=== PATIENT | female | born 1970 | race Asian ===

== ENCOUNTER 2020-05-25 10:30 | Outpatient (REF) | payer OTHER, SELFPAY ==
[2020-05-25 13:57] LABS: MANUAL DIFF FLAG NO
[2020-05-25 14:04] LABS: Basophils Absolute Auto 0.1 X10*3/uL (0.0-0.2); Basophils Percent Auto 1.2 % (0-2); Eosinophils Absolute Auto 0.3 X10*3/uL (0.0-0.4); Eosinophils Percent Auto 6.1 % (0-4); Hematocrit 38.4 % (37-47); Hemoglobin 12.3 g/dl (12.0-16.0); Imm Gran Abs Auto 0.01 X10*3/uL (0.00-0.03); Imm Gran Pct Auto 0.2 % (0.0-0.4); Lymphocytes Absolute Auto 1.7 X10*3/uL (1.2-4.9); Lymphocytes Percent Auto 32.9 % (20-40); Mean Corpuscular Hemoglobin 27.6 pg (27.0-33.0); Mean Corpuscular Volume 86.1 fL (80-98); Mean Platelet Volume 9.9 fL (9.4-12.3); Monocytes Absolute Auto 0.4 X10*3/uL (0.1-1.2); Monocytes Percent Auto 7.3 % (2-11); Neutrophils Absolute Auto 2.7 X10*3/uL (2.0-8.3); Neutrophils Percent Auto 52.3 % (45-73); Platelet Count 329 X10*3/uL (160-400); Red Blood Count 4.46 X10*6/uL (4.20-5.50); Red Cell Distribution Width 12.3 % (11.0-16.0); White Blood Count 5.1 X10*3/uL (4.8-10.8)
[2020-05-25 14:44] LABS: Anion Gap 12 (12-20); Blood Urea Nitrogen 16 mg/dL (9-16); Calcium 9.3 mg/dL (8.4-10.2); Carbon Dioxide 29 mmol/L (22-29); Chloride 104 mmol/L (96-108); Cholesterol 179 mg/dL; Estimated Glomerular Filt Rate > 60; Glucose Fasting 83 mg/dL (60-99); HDL Cholesterol 84 mg/dL; LDL Cholesterol Calculated 86 mg/dl; Potassium 4.8 mmol/l (3.3-5.1); Sodium 140 mmol/L (135-145); Triglycerides 46 mg/dL
== END 2020-05-25 10:31 | disposition home or self-care (01) ==
LOC: HO.HMGCLDS 10:30
PROVIDERS: PCP Internal Medicine; Visit Provider Internal Medicine
DX: Z01.419 Encounter for gynecological examination (general) (routine) without abnormal findings (principal); Z12.31 Encounter for screening mammogram for malignant neoplasm of breast
CPT/HCPCS: 36415; 80048; 80061; 85025

== ENCOUNTER 2020-12-16 11:35 | Outpatient (REF) | payer OTHER, SELFPAY ==
[2020-12-16 14:00] LABS: MANUAL DIFF FLAG NO
[2020-12-16 14:06] LABS: Basophils Percent Auto 0.5 % (0-2); Eosinophils Percent Auto 0.3 % (0-4); Hematocrit 41.9 % (37-47); Hemoglobin 13.5 g/dl (12.0-16.0); Imm Gran Abs Auto 0.01 X10*3/uL (0.00-0.03); Imm Gran Pct Auto 0.3 % (0.0-0.4); Lymphocytes Absolute Auto 0.6 X10*3/uL (1.2-4.9); Lymphocytes Percent Auto 15.5 % (20-40); Mean Corpuscular HGB Conc 32.2 g/dl (31.0-35.0); Mean Corpuscular Hemoglobin 27.3 pg (27.0-33.0); Mean Corpuscular Volume 84.6 fL (80-98); Mean Platelet Volume 9.8 fL (9.4-12.3); Monocytes Absolute Auto 0.5 X10*3/uL (0.1-1.2); Monocytes Percent Auto 11.5 % (2-11); Neutrophils Absolute Auto 2.8 X10*3/uL (2.0-8.3); Neutrophils Percent Auto 71.9 % (45-73); Platelet Count 214 X10*3/uL (160-400); Red Blood Count 4.95 X10*6/uL (4.20-5.50); Red Cell Distribution Width 12.1 % (11.0-16.0); White Blood Count 3.9 X10*3/uL (4.8-10.8)
[2020-12-16 14:30] LABS: Alanine Aminotransferase 95 U/L (0-31); Albumin Level 4.4 g/dL (3.5-5.0); Alkaline Phosphatase 84 U/L (39-117); Anion Gap 14 (12-20); Aspartate Amino Transferase 78 U/L (5-31); Bilirubin Total 0.5 mg/dL (0.0-1.0); Blood Urea Nitrogen 14 mg/dL (9-16); Calcium 9.4 mg/dL (8.4-10.2); Carbon Dioxide 25 mmol/L (22-29); Chloride 105 mmol/L (96-108); Estimated Glomerular Filt Rate > 60; Glucose Random 99 mg/dL (60-115); Potassium 4.2 mmol/L (3.3-5.1); Sodium 140 mmol/L (135-145); Total Protein 7.9 g/dL (6.5-8.0)
[2020-12-16 14:33] LABS: Monotest Negative (Negative)
== END 2020-12-16 11:36 | disposition home or self-care (01) ==
LOC: HO.HMGCLDS 11:35
PROVIDERS: PCP Internal Medicine; Visit Provider Hospitalist
DX: R53.83 Other fatigue (principal); Z20.822 Contact with and (suspected) exposure to COVID-19
CPT/HCPCS: 36415; 80053; 84443; 85025; 86308; U0003; U0005

== ENCOUNTER 2021-02-13 14:29 | Outpatient (REF) | payer OTHER, SELFPAY ==
[2021-02-13 16:02] LABS: Alanine Aminotransferase 18 U/L (0-31); Albumin Level 4.6 g/dL (3.5-5.0); Alkaline Phosphatase 63 U/L (39-117); Aspartate Amino Transferase 20 U/L (5-31); Bilirubin Direct 0.2 mg/dL (0.0-0.5); Bilirubin Total 0.6 mg/dL (0.0-1.0); Total Protein 7.8 g/dL (6.5-8.0)
[2021-02-13 16:23] LABS: Ferritin 53 ng/mL (10-250)
[2021-02-15 08:07] LABS: HBc Num1 0.09 S/CO (0.00-0.79); HBsAGNum1 0.17 S/CO (0.00-0.99); Hepatitis A Antibody IgM 0.19 Index (0-0.79); Hepatitis B Core Antibody Nonreactive (Nonreactive); Hepatitis B Surface Antigen Negative (Negative); ~HepC Num1 0.14 S/CO (0.00-0.79); ~Hepatitis A Antibody IgM Nonreactive (Nonreactive); ~Hepatitis C Antibody Nonreactive (Nonreactive)
[2021-02-15 08:41] LABS: HBS Num1 0.82 mIU/mL (0-7.99); HIV AB/AG Nonreactive (Nonreactive); HIV Num 1 0.09 S/CO (0.00-0.99); ~Hepatitis B Surface Antibody NONREACTIVE (Nonreactive)
[2021-02-15 10:42] LABS: Alpha Fetoprotein 6.6 ng/mL
[2021-02-16 14:46] LABS: Mitochondrial Antibodies NEGATIVE (NEGATIVE)
[2021-02-16 22:37] LABS: Anti Nuclear Antibody Pattern Nuclear, Speckled; Anti Nuclear Antibody Screen POSITIVE (NEGATIVE)
[2021-02-17 11:41] LABS: Smooth Muscle Antibody <20 U (<20)
== END 2021-02-13 14:30 | disposition home or self-care (01) ==
LOC: HO.LAB 14:29
PROVIDERS: PCP Internal Medicine; Visit Provider Nurse Practitioner
DX: R79.89 Other specified abnormal findings of blood chemistry (principal)
CPT/HCPCS: 36415; 80076; 82105; 82728; 86038; 86039; 86255; 86256; 86704; 86706; 86709; 86803; 87340; 87389

== ENCOUNTER 2021-03-31 14:32 | Outpatient (REF) | payer OTHER, SELFPAY ==
[2021-03-31 18:06] LABS: Alanine Aminotransferase 10 U/L (0-31); Albumin Level 4.4 g/dL (3.5-5.0); Alkaline Phosphatase 55 U/L (39-117); Aspartate Amino Transferase 14 U/L (5-31); Bilirubin Direct < 0.2 mg/dL (0.0-0.5); Bilirubin Total 0.3 mg/dL (0.0-1.0); Total Protein 7.3 g/dL (6.5-8.0)
[2021-03-31 18:27] LABS: TSH reflex Free T4 1.27 uIU/mL (0.32-4.0)
[2021-04-03 04:11] LABS: SARS COV2 IgG Negative (Negative)
== END 2021-03-31 14:33 | disposition home or self-care (01) ==
LOC: HO.HMGCLDS 14:32
PROVIDERS: PCP Internal Medicine; Visit Provider Internal Medicine
DX: R94.5 Abnormal results of liver function studies (principal); R00.2 Palpitations; Z01.84 Encounter for antibody response examination
CPT/HCPCS: 36415; 80076; 84443; 86769

== ENCOUNTER 2021-05-19 08:07 | Outpatient (REF) | payer OTHER, SELFPAY ==
--- NOTE | ~2021-05-19 | US_ITS ---
EXAMINATION: US COMPLETE ABDOMEN WITH LIVER ELASTOGRAPHY CLINICAL INFORMATION: Abnormal blood chemistry, elevated liver function tests. COMPARISON: None. TECHNIQUE: Real-time imaging of the abdominal viscera. FINDINGS: PANCREAS: Normal. The visualized pancreatic head and body are normal in appearance. The remainder of the pancreas is obscured from visualization by the overlying bowel gas. ABDOMINAL AORTA: The proximal, middle, and distal aortic segments are normal in caliber. INFERIOR VENA CAVA: Visualized portions are normal. LIVER: The liver demonstrates normal size, contour and average echogenicity. No focal lesion or intrahepatic biliary duct dilatation. The right lobe measures 13.8 cm in length. The left lobe measures 12.3 cm in length. Portal flow is hepatopedal. Shear wave liver elastography median stiffness is 1.44 m/s (reference: normal median stiffness is 1.3 m/s or less). IQR/median stiffness to assess sampling precision is 0.09 (reference: good quality data set is IQR/median stiffness of 0.15 or less). GALLBLADDER: There are multiple echogenic nonmobile polyps with the largest polyp measuring 0.7 x 0.9 cm. No echogenic stones or wall thickening seen. COMMON BILE DUCT: Normal in caliber measuring 0.7 cm in diameter. RIGHT KIDNEY: There is an anechoic cyst midpole medially measuring 1.7 x 1.0 x 1.6 cm. There is an echogenic stone versus calcification posterior to the cyst measuring 1.0 x 0.2 cm. There is an echogenic stone in the upper pole measuring 0.2 x 0.1 cm. No caliectasis or hydronephrosis seen. The kidney measures 10.3 cm in maximum dimension. LEFT KIDNEY: Normal. No hydronephrosis. No renal calculi or focal parenchymal lesions. The kidney measures 9.7 cm in maximum dimension. SPLEEN: Normal. The spleen measures 6.5 cm in maximum dimension. FREE FLUID: None. US/US abdomen comp w elastography IMPRESSION: 1. At least 5 echogenic gallbladder polyps with largest one measuring 9 mm. Anechoic cysts, and a nonobstructive echogenic 2 calculi right kidney. There is no hydronephrosis. Average liver echogenicity. No focal lesion. 2. Liver elastography: Median liver stiffness 1.44 m/s. Findings suggestive of cACLD ruled out. REFERENCE: Society of Radiologists in Ultrasound Liver Stiffness Thresholds (2020): LIVER STIFFNESS THRESHOLDS: *Liver Stiffness equal or less than 1.3 m/s: High probability of being normal. *Liver Stiffness less than 1.7 m/s: In the absence of other known clinical signs, rules out compensated advanced chronic liver disease. *Liver Stiffness 1.7-2.1 m/s: Suggestive of compensated advanced chronic liver disease but need further test for confirmation. *Liver Stiffness over 2.1 m/s: Rules in compensated advanced chronic liver disease. *Liver Stiffness over 2.4 m/s: Suggestive of clinically significant portal hypertension. QUALITY OF DATA SET: *IQR/Median value equal or less than 0.15 implies a quality data set. *IQR/Median value over 0.15 implies a poor quality data set. SIGNIFICANT CHANGE FROM PRIOR EXAM: Significant change if liver stiffness measurement is 10% or greater from prior exam. OTHER CONSIDERATIONS: The stage of liver fibrosis may be overestimated in the setting of acute hepatitis, liver inflammation, elevated liver function tests, hepatic vascular congestion, obstructive cholestasis, non-fasting state, and infiltrative diseases such as amyloidosis and lymphoma. In some patients with NAFLD, the liver stiffness thresholds for compensated advanced chronic liver disease may be lower. In causes other than viral hepatitis and NAFLD, liver stiffness thresholds are not well established.
== END 2021-05-19 08:08 | disposition home or self-care (01) ==
LOC: HO.US 08:07
PROVIDERS: PCP Internal Medicine; Visit Provider Nurse Practitioner
DX: R79.89 Other specified abnormal findings of blood chemistry (principal)
CPT/HCPCS: 76705; 76981

== ENCOUNTER → 2022-07-23 13:12 | Outpatient (BNVA) | payer OTHER, SELFPAY | PROVIDERS: PCP Internal Medicine; Visit Provider Internal Medicine | DX: Z20.7 Contact with and (suspected) exposure to pediculosis, acariasis and other infestations (principal) | CPT/HCPCS: 99202 ==

== ENCOUNTER 2024-07-29 14:10 | Outpatient (AMB) | payer OTHER, SELFPAY ==
[2024-07-29 14:19] VITALS: BP 108/72; PULSE 74; O2SAT 94; BMI 23.3
--- NOTE | 2024-07-29 14:19 | A.OFFPC_ITS ---
Vital Signs 07/29/24 14:19 Height 5 ft 6 in Weight 144 lb 6 oz BMI 23.3 BP 108/72 Blood Pressure Location Rt brachial Position Sitting Pulse 74 Pulse Source Pulse Oximeter Pulse Oximetry (%) 94 Oxygen Delivery Method Room Air Intake Visit Reasons: CPE Allergies Iodinated Contrast Media Allergy (Verified 07/23/22 13:15) mild Medication List - Last Reconciled 07/29/24 by Zoraida Ortiz MD No Known Home Meds Tobacco use date assessed: 06/01/22 HPI CPE HPI Details - The patient is a 54-year-old female pr esenting for a general medical examination. - Post-cholecystectomy, she reports into lerance to fatty foods, experiencing postprandial abdominal pain, primarily when consuming high-fat foods like Egyptian fries. This issue surfaced following unnecessary gallbladder removal. - Cologuard screening was negative over a year ago; recommended every three years. - She adheres to mammography screenings with the last occurring in May; self-directed follow-up is pending. - Her last OBGYN consult occurred two ye ars ago; next consult is expected in about three years. Health Maintenance - Mammography performed in May; fol low-up scheduled independently. - Last OBGYN visit two years prior with the next recommended in three years. - Cologuard test over a year ago returne d negative results. - Vitamin D supplementation recommended twice weekly. - Tetanus vaccination administered in ; due in 2026. - Encouragement of dietary intake of petra cium and vitamin D through supplements and dairy. Diagnostic results - Labs from 2020 indicated normal kidney function, glucose levels, liver enzymes, thyroid function, iron levels, hemoglobin, and platelet count. Patient Instructions - Schedule and undergo mammography as pa rt of routine health maintenance. - Continue regular OBGYN follow-ups as p reviously advised, approximately every five years. - Avoid high-fat foods to mitigate post- cholecystectomy abdominal discomfort. - Continue calcium and multivitamin supp lementation while maintaining a dietary focus on vitamin D, preferably twice weekly supplementing. Review of Systems - Gastrointestinal: Reports abdominal pa in in response to fatty foods post- cholecystectomy. - Musculoskeletal: Denies swelling or pa in in joints. - Neurological: Denies headaches, palpit ations, or other neurological symptoms. - Hematological: Denies signs of anemia or vitamin deficiency symptoms. - General: No fever no chills - Ear nose throat: No sore throat no hearing difficulty no ear pain - Cardiovascular: No syncope, no chest pain, no palpitations - Endocrine: No polyuria polydipsia no heat intolerance - Genitourinary: No dysuria - Skin: No new complaints Physical Exam General: Cooperative, healthy appearing, comfortable, no acute distress Orientation: Patient oriented x3 Limitations: None Head: Normal to inspection Ears: Within normal limit visually Nose: Normal external nose present Face and sinus: Normal facial exam Eyes: Appearance normal, extraocular movement intact pupils reactive Neck: Normal visual inspection and supple, thyroid normal Respiratory: Normal respiratory effort and able to speak in complete sentences. Clear to auscultation, no stridor Breast exam benign Cardiovascular: S1 and S2 GI: Normal to inspection. Soft to palpation and nontender, except for stomach ache after eating fatty foods Skin: Turgor normal, no acute findings Neuro: Patient oriented x3, motor sensory intact, balance intact, tandem pass Extremities: Normal to inspection, no swelling noted [facility] Medical History Exposure to parasitic disease Annual physical exam Surgical History History of hysteroscopy H/O laparoscopy Family History Father Cancer of prostate Mother HTN (hypertension) Breast cancer Son No problems noted. Son No problems noted. Daughter No problems noted. Social History Housing: Apartment Alcohol intake: never Patient Tobacco Use Status: Never used Tobacco e-Cigarette/Vaping Use: Never Used Second Hand Smoke Exposure: Yes (last month ) Current occupational status: employed Cognitive needs: No Hearing needs: No Vision needs: No Questionnaire PHQ-9 Over the last 2 weeks, how often have you been bothered by any of the following problems? 1. Little interest or pleasure in doing things: not at all 2. Feeling down, depressed, or hopeless: several days 3. Trouble falling or staying asleep, or sleeping too much: not at all 4. Feeling tired or having little energy: several days 5. Poor appetite or overeating: several days 6. Feeling bad about yourself - or that you are a failure or have let yourself or your family down: several days 7. Trouble concentrating on things, such as reading the newspaper or watching television: several days 8. Moving or speaking so slowly that other people could have noticed. Or the opposite - being so fidgety or restless that you have been moving around a lot more than usual: not at all 9. Thoughts that you would be better off or of hurting yourself in some way: not at all Total score: 5 Depression Screening Interpretation: Negative Depression Screening Done: Yes 92402 - PHQ-9 Billing: Yes Source: Developed by Drs. Charles Sarmiento, Kaley Parker, Eron Castaneda and colleagues, with an educational gricelda from [employer]. Thrive Questionnaire Date Thrive assessed: 05/30/21 I am a: Patient What is your living situation today?: I have a steady place to live Within the past 12 months, did the food you bought not last and you didn't have the money to get more?: Never true Within the past 12 months, did you worry whether your food would run out before you got money to buy more?: Never true Do you have trouble paying for medicines?: No Do you have trouble getting transportation to medical appointments?: No Do you have trouble paying your heating and electricity bill?: No Do you have trouble taking care of your child, family member or friend?: No Do you have trouble with day-to-day activities such as bathing, preparing meals, shopping, managing finances, etc.?: No Are you currently unemployed and looking for a job?: No Are you interested in more education?: No Please select the resources that you would like help with: None Currently or been in a relationship where the following occur: No concerns reported THRIVE Score: 0 AUDIT C Alcohol Use Questionnaire (AUDIT-C) 1. How often do you have a drink containing alcohol?: Never Total Score: 0 CLEMENTINA-7 AMB Questionnaire CLEMENTINA-7 Date CLEMENTINA - 7 assessed: 05/30/21 Feeling nervous, anxious, or on edge: 1 = Several days Not being able to stop or control worryin = Several days Worrying too much about different things: 1 = Several days Trouble relaxin = Several days Being so restless that it is hard to sit still: 1 = Several days Becoming easily annoyed or irritable: 1 = Several days Feeling afraid as if something awful might happen: 1 = Several days Total CLEMENTINA-7 score (0-4 normal; 5-9 mild; 10-14 moderate; 15-21 severe): 7 Source: Developed by Drs. Charles Sarmiento, Kaley Parker, Eron Castaneda and colleagues, with an educational gricelda from [employer]. CLEMENTINA-7 Assessment Billing CLEMENTINA-7 Assessment Tool: CLEMENTINA-7 Assessment 08095 Physical exam (Primary Care) Vital Signs: Last Vital Signs Pulse 74 07/29/24 14:19 BP 108/72 07/29/24 14:19 Pulse Ox 94 07/29/24 14:19 Oxygen Delivery Method Room Air 07/29/24 14:19 BMI result Body Mass Index 23.3 Tobacco/Smoking Status: Tobacco use Status Tobacco use date assessed 06/01/22 07/29/24 14:21 Patient Tobacco Use Status Never used Tobacco 07/29/24 14:21 e-Cigarette/Vaping Use Never Used 07/29/24 14:21 PHQ-9: PHQ-9 Score PHQ-9: Total score 5 07/29/24 14:36 Depression Screening Interpretation: Negative Thrive Assessment: Date of Thrive Assessment Date Thrive assessed 05/30/21 07/29/24 14:21 Currently or been in a relationship where the following occur: No concerns reported Coding Level of Care Code Est Pt Prev Care 40-64y(72397) Diagnoses Adult general medical examination Z00.00 Additional Codes PHQ-9 - 65411 - PHQ-9 Billing: Yes ([id number]) CLEMENTINA-7 Assessment Billing - CLEMENTINA-7 Assessment Tool: CLEMENTINA-7 Assessment 99542 ([id number]) Assessment & Plan Assessment & Plan (1) Adult general medical examination: Code(s): Z00.00 - Encounter for general adult medical examination without abnormal findings Category: Medical Plan - The patient is a 54-year-old female presenting for a general medical examination. - Post-cholecystectomy, she reports intolerance to fatty foods, experiencing postprandial abdominal pain, primarily when consuming high-fat foods like Egyptian fries. This issue surfaced following unnecessary gallbladder removal. - Cologuard screening was negative over a year ago; recommended every three years. - She adheres to mammography screenings with the last occurring in May; self-directed follow-up is pending. - Her last OBGYN consult occurred two years ago; next consult is expected in about three years. Health Maintenance - Mammography performed in May; follow-up scheduled independently. - Last OBGYN visit two years prior with the next recommended in three years. - Cologuard test over a year ago returned negative results. - Vitamin D supplementation recommended twice weekly. - Tetanus vaccination administered in 2016; due in 2026. - Encouragement of dietary intake of calcium and vitamin D through supplements and dairy. Diagnostic results - Labs from 2020 indicated normal kidney function, glucose levels, liver enzymes, thyroid function, iron levels, hemoglobin, and platelet count. Patient Instructions - Schedule and undergo mammography as part of routine health maintenance. - Continue regular OBGYN follow-ups as previously advised, approximately every five years. - Avoid high-fat foods to mitigate post-cholecystectomy abdominal discomfort. - Continue calcium and multivitamin supplementation while maintaining a dietary focus on vitamin D, preferably twice weekly supplementing. Orders: Orders Comprehensive [place]. Panel Fast Today Z00.00 - Encounter for general adult medical examination without abnormal findings Lipid Panel Today Z00.00 - Encounter for general adult medical examination without abnormal findings MM tomosynthesis screening BI Today Z12.31 - Encounter for screening mammogram for malignant neoplasm of breast Complete Blood Count Auto Diff Today Z00.00 - Encounter for general adult medical examination without abnormal findings UA CC w/rflx Micro + Cult Today Z00.00 - Encounter for general adult medical examination without abnormal findings
== END 2024-07-29 14:51 | disposition home or self-care (01) ==
PROVIDERS: PCP Internal Medicine; Visit Provider Internal Medicine
DX: Z00.00 Encounter for general adult medical examination without abnormal findings (principal)

== ENCOUNTER → 2024-07-29 14:10 | Outpatient (BNVA) | payer OTHER, SELFPAY | PROVIDERS: PCP Internal Medicine; Visit Provider Internal Medicine | DX: Z00.00 Encounter for general adult medical examination without abnormal findings (principal) | CPT/HCPCS: 96127 ==

== ENCOUNTER 2024-12-01 11:48 | Outpatient (AMB) | payer OTHER, SELFPAY ==
--- NOTE | 2024-12-01 11:52 | AM.OFFWIN_ITS ---
Intake Vital Signs 12/01/24 11:55 12/01/24 11:56 Height 5 ft 6 in 5 ft 6 in Weight 142 lb BMI 22.9 BP 100/72 Blood Pressure Location Rt brachial Position Sitting Pulse 81 Pulse Source Pulse Oximeter Temp 98.1 F Temp Source Oral Intake Visit Reasons: PE Tick bite, hives Intake Note: Pt is here today tick bite Lt wrist noticed yesterday and experience hives Patient Tobacco Use Status: Never used Tobacco Allergies Iodinated Contrast Media Allergy (Verified 07/23/22 13:15) mild HPI HPI Comments History of Present Illness Details History of Present Illness The patient is a 54-year-old female presenting with an allergic reaction following a tick bite. She reports that the tick was extremely small and she noticed it yesterday on the left inner wrist. She states that she had to pick it off of her. The initial reaction included slight swelling and redness which developed into widespread hives the following day up her left arm, accompanied by itching and a tingling sensation. The patient has had prior experiences with tick bites but noted that previous ticks were larger. She has had experienced severe hives post CT oral treatment which required prednisone. The patient currently denies systemic symptoms such as fever, chills, or respiratory difficulties. She has begun taking Benadryl for management. She denies CP, SOB, abd pain, n/v/d, joint pain, weakness. Physical Exam General: Cooperative, healthy appearing, comfortable, no acute distress and well developed Respiratory: Normal respiratory effort and able to speak in complete sentences. Clear to auscultation bilaterally Cardiovascular: Regular rate and rhythm. Normal S1 and S2 GI: Normal to inspection. Soft to palpation and nontender Skin: Small single tiny lesion noted on the left wrist. No evidence of tick noted. NO streaking noted. Hives present on the left forearm, no other rashes or lesions noted Patient was informed and verbally consented to the use of an ambient scribe for clinic note documentation during this visit. [facility] Medical History Exposure to parasitic disease Annual physical exam Surgical History History of hysteroscopy H/O laparoscopy Family History Father Cancer of prostate Mother HTN (hypertension) Breast cancer Son No problems noted. Son No problems noted. Daughter No problems noted. Social History Housing: Apartment Alcohol intake: never Patient Tobacco Use Status: Never used Tobacco e-Cigarette/Vaping Use: Never Used Second Hand Smoke Exposure: Yes (last month ) Current occupational status: employed Cognitive needs: No Hearing needs: No Vision needs: No Review of Systems Const All systems reviewed & are unremarkable except as noted in HPI and below Physical Exam Vital Signs: Last Vital Signs Temp 98.1 F 12/01/24 11:56 Pulse 81 12/01/24 11:56 BP 100/72 12/01/24 11:56 BMI result Body Mass Index 22.9 Assessment & Plan Assessment & Plan (1) Tick bite: Code(s): W57.XXXA - Bitten or stung by nonvenomous insect and other nonvenomous arthropods, initial encounter (2) Allergic reaction: Code(s): T78.40XA - Allergy, unspecified, initial encounter Plan Most likely tick bite and allergic reaction from the tick bite Plan The patient will receive a Medrol Dosepak to address the allergic reaction from the tick bite, aiming to diminish the hives and their associated itchiness. Additionally, prophylactic antibiotics for potential Lyme disease prevention will be provided. Doxycycline 100 mg BID for 7 days. Antihistamines, including cetirizine or loratadine, are advised alongside Benadryl for continued symptom management. The patient was encouraged to seek immediate care if acute symptoms, such as respiratory difficulties, arise. Prescriptions have been sent to the designated pharmacy for prompt procurement and initiation of therapy. Medications: New doxycycline hyclate 100 mg PO BID 7 days 14 tabs 0RF prednisone See taper instructions 10 mg PO DIRECTED 21 ea 0RF Coding Level of Care Code Est Pt Level 4 (17428) Diagnoses Tick bite W57.XXXA Allergic reaction T78.40XA
[2024-12-01 11:56] VITALS: BP 100/72; PULSE 81; TEMP 36.7; BMI 22.9
== END 2024-12-01 12:27 | disposition home or self-care (01) ==
PROVIDERS: PCP Internal Medicine; Visit Provider Physician Assistant Medical
DX: T63.481A Toxic effect of venom of other arthropod, accidental (unintentional), initial encounter (principal); T78.40XA Allergy, unspecified, initial encounter

== ENCOUNTER → 2024-12-01 11:48 | Outpatient (BNVA) | payer OTHER, SELFPAY | PROVIDERS: PCP Internal Medicine; Visit Provider Physician Assistant Medical ==

== ENCOUNTER 2025-03-03 16:07 | Outpatient (REF) | payer OTHER, SELFPAY ==
[2025-03-04 12:32] LABS: Chlamydia pneumoniae PCR Not Detected (Not Detect.); Coronavirus 229E PCR Not Detected (Not Detect.); Coronavirus HKU1 PCR Not Detected (Not Detect.); Coronavirus NL63 PCR Not Detected (Not Detect.); Coronavirus OC43 PCR Not Detected (Not Detect.); RSV PCR Not Detected (Not Detect.); Rhino/Enterovirus PCR Detected (Not Detect.)
[2025-03-04 12:34] LABS: Influenza A H1 PCR Not Detected (Not Detect.); Influenza A H1-2009 PCR Not Detected (Not Detect.); Influenza A H3 PCR Not Detected (Not Detect.); SARS-CoV-2 PCR Not Detected (Not Detect.)
--- OUTSIDE RECORDS SUMMARY | 2025-03-04 13:03 | XMS_ITS | Clinical Summary ---
Author Organization [facility] Address [address] [place] [address] Care Team Providers Care Lead Tinner Name Role Phone No, Pcp Primary Care [...] Plan of Treatment Not on file Insurance [facility] Address: [address] [address] Care Teams Lead Tinner Relationship Specialty Start Date End Date Rain Lim MD No Address [place] [address] PCP - General 12/21/20
--- OUTSIDE RECORDS SUMMARY | 2025-03-04 13:03 | XMS_ITS | Encounter Summary ---
Author Organization [facility] Address [address] [place] [address] Phone Care Team Providers Care Public Policy Manager Name Role Phone Zoraida Ortiz MD Primary Care Provider [phone] Encounter Details Date Type Department Care Team (Late st Contact Info) Description 09/11/2021 Procedure Pass OR Admitting Dept - Virtual Department [address] [place] [address] Social History Tobacco Use Types Packs/Day Years [...] on filedocumented in this encounter Care Teams Public Policy Manager Relationship Specialty Start Date End Date Zoraida Ortiz MD [facility] [place] [address] PCP - General Internal Medicine 06/02/21 documented as of this encounter Additional Source Comments The information contained in this document represents components of the legal health record. It is not the complete legal health record.[facility]
--- OUTSIDE RECORDS SUMMARY | 2025-03-04 13:03 | XMS_ITS | Clinical Summary ---
Author Organization [facility] Address [address] [employer] [address] [facility] [address] [place] [address] Phone Care Team Providers Care Sales Representative [employer] Supplies Name Role Phone Zoraida Ortiz MD Primary Care Provider [phone] Allergies Active Allergy Reactions Criticality Noted Date [...] topic Medical Devices Not on file Insurance [employer] DIRECT [employer] [facility] DIRECT DIRECT DIRECT [place] [address] [place] [address] [place] [address] [place] [address] DIRECT [place] [place] [phone] Advance Directives For more information, please contact: [phone] (9AM - 5PM Rachel/[facility], Saturday-Saturday) * Full Code (Latest Code Status on File) Date Activated Date Inactivated Comments 09/11/2021 7:25 AM Question Answer Comments Code Status Confirmed With: Patient Care Teams Sales Representative [employer] Relationship Specialty Start Date End Date Zoraida Ortiz MD [facility] [place] [address] PCP - General Internal Medicine 06/02/21 Additional Source Comments The information contained in this document represents components of the legal health record. It is not the complete legal health record.[facility]
== END 2025-03-03 16:08 | disposition home or self-care (01) ==
LOC: HO.LNP 16:07
PROVIDERS: PCP Internal Medicine; Visit Provider Physician Assistant Medical
DX: R06.02 Shortness of breath (principal); J02.9 Acute pharyngitis, unspecified; R05.1 Acute cough
CPT/HCPCS: 87633; 87880

== ENCOUNTER 2025-03-03 16:07 | Outpatient (AMB) | payer OTHER, SELFPAY ==
[2025-03-03 16:19] VITALS: BP 102/66; PULSE 90; TEMP 36.7; O2SAT 98; BMI 21.9
--- NOTE | 2025-03-03 16:19 | AM.OFFWIN_ITS ---
Intake Vital Signs 03/03/25 16:19 Height 5 ft 6 in Weight 136 lb BMI 21.9 BP 102/66 Blood Pressure Location Lt brachial Position Sitting Pulse 90 Pulse Source Pulse Oximeter Temp 98.1 F Temp Source Oral Pulse Oximetry (%) 98 Oxygen Delivery Method Room Air Intake Visit Reasons: EP-cough, sore throat Intake Note: pt presents with coughing and sore throat with pain swallowing x2 weeks Patient Tobacco Use Status: Never used Tobacco Allergies Iodinated Contrast Media Allergy (Verified 03/03/25 16:22) mild Do you need a note to return to daycare/school/sports/work: No HPI HPI Comments History of Present Illness Details History - The patient is a 54-year-old female pr esenting with a sore throat persisting for two weeks. - The sore throat began approximately tw o weeks ago and has been persistent, with the patient noting irritation and redness in the throat. - The patient reports a cough that produ curt yellow sputum, particularly in the morning, and occasional dry cough at other times. - She denies any fever but mentions feel ing warm at times, particularly last night. - The patient experiences ear pain, whic h she describes as a chronic issue that has worsened recently. - She reports shortness of breath, attri buting it to difficulty taking deep breaths due to throat discomfort. - The patient has a history of sinus inf ections, with recent symptoms including dental pain suggestive of sinusitis. - No history of asthma or recent COVID-1 9 testing was reported. - She denies fever or chills, CP, SOB, a bd pain, n/v/d. Physical Exam General: Cooperative, healthy appearing, comfortable and no acute distress Orientation/consciousness: Patient oriented x3 Limitations: No limitations Head: Normal to inspection Ears: Hearing grossly normal bilaterally, external ears normal Nose: Normal external nose present, normal nares present, and no nasal discharge present. Face and sinus: Sinuses nontender to palpation Mouth: Normal oral and palatal mucosa present and moist mucous membranes noted. Throat: Tonsils normal. Uvula is midline. Posterior oropharynx with erythema and no exudates. Eyes: Appearance normal, both eyes and all related structures Neck: Normal visual inspection, full ROM. No lymphadenopathy noted. Respiratory: Clear to auscultation bilaterally. Normal respiratory effort, able to speak in complete sentences. No respiratory distress, not tachypneic, no tripod positioning and no use of accessory muscles. Cardiovascular: Regular rate and rhythm. Normal S1 and S2 Skin: No rashes or lesions noted Patient was informed and verbally consented to the use of an ambient scribe for clinic note documentation during this visit [facility] Medical History Exposure to parasitic disease Annual physical exam Surgical History History of hysteroscopy H/O laparoscopy Family History Father Cancer of prostate Mother HTN (hypertension) Breast cancer Son No problems noted. Son No problems noted. Daughter No problems noted. Social History Housing: Apartment Alcohol intake: never Patient Tobacco Use Status: Never used Tobacco e-Cigarette/Vaping Use: Never Used Second Hand Smoke Exposure: Yes (last month ) Current occupational status: employed Cognitive needs: No Hearing needs: No Vision needs: No Review of Systems Const All systems reviewed & are unremarkable except as noted in HPI and below Physical Exam Vital Signs: Last Vital Signs Temp 98.1 F 03/03/25 16:19 Pulse 90 03/03/25 16:19 BP 102/66 03/03/25 16:19 Pulse Ox 98 03/03/25 16:19 Oxygen Delivery Method Room Air 03/03/25 16:19 BMI result Body Mass Index 21.9 Results AMB Rapid Strep AMB Rapid Strep Negative Last Edit by Katya Sauceda MA on 03/03/25 16:36 Results Reviewed Results Reviewed: Laboratory Last Values Strep Scn Rapid Clinic Negative 03/03/25 16:34 Assessment & Plan Assessment & Plan (1) Sore throat: Code(s): J02.9 - Acute pharyngitis, unspecified (2) Cough: Code(s): R05.9 - Cough, unspecified Qualifiers: Cough type: acute Qualified Code(s): R05.1 - Acute cough Plan Most likely strep vs viral illness vs covid vs flu vs RSV Rapid strep is negative plan - tylenol or motrin as needed - diet as tolerated - salt water gargles - will perform a covid/flu/RSV swab and call her with the results - A throat swab was performed to rule out streptococcal infection, and symptomatic treatment was discussed. - A cough suppressant and inhaler were prescribed to manage symptoms, although the patient expressed reluctance to use the inhaler - The patient was advised to use decongestants and monitor symptoms, with follow-up if symptoms persist. Orders: Orders Resp Pathogen Panel - [facility] [place] Today J06.9 - Acute upper respiratory infection, unspecified AMB Rapid Strep Screen Today Z13.9 - Encounter for screening, unspecified Medications: New benzonatate 100 mg PO bid-tid PRN 21 caps 0RF Cough 7 days Coding Level of Care Code Est Pt Level 3 (73538) Diagnoses Sore throat J02.9 Acute cough R05.1 Cough type: acute
--- OUTSIDE RECORDS SUMMARY | 2025-03-03 17:50 | XMS_ITS | Clinical Summary ---
Author Organization [facility] Address [address] [facility] [address] [place] [address] Phone Care Team Providers Care Pinsetter Mechanic Helper Name Role Phone Zoraida Ortiz MD Primary Care Provider [phone] Allergies Active Allergy Reactions Criticality Noted Date Comments Other Unknown Low 09/06/2021 [address] used during CT scan Medications ondansetron (ZOFRAN, HYDROCHLORIDE,) 4 MG tablet 1 tablet Orally PRN NAUSEA 1-2 TIMES DAILY 02/05/20 17 Active Medication-Free Text Ibuprofen Active Medication-Free Text Lorazepam Active ondansetron (ZOFRAN-ODT) 4 MG disintegrating tablet TAKE 1 TABLET BY MOUTH EVERY 8 HOURS NEEDED FOR NAUSEA AND VOMITING 07/22/19 22 Active acetaminophen (TYLENOL) 325 mg tablet Take 2 tablets (650 mg total) by mouth every 4 (four) hours as needed for mild pain. 0 09/12/19 Active Additional Information Patient not taking.Reported on 09/21/2021 ibuprofen (ADVIL,MOTRIN) 200 MG tablet Take 2 tablets (400 mg total) by mouth every 6 (six) hours as needed for pain (specific location in comments). 09/12/19 Active Additional Information Patient not taking.Reported on 09/21/2021 oxyCODONE 5 MG immediate release tablet Take 1-2 tablets (5-10 mg total) by mouth every 4 (four) hours as needed for moderate pain. Partial fill ok 12 tablet 09/12/19 Active Additional Information Patient not taking.Reported on 09/21/2021 Active Problems Problem Noted Date Diagnosed Date Status post laparoscopic cholecystectomy 03/24/2 022 Polyp of gallbladder 08/10/2021 Family History Medical History Relation Comments Prostate cancer Father Breast cancer Mother Hypertension Mother Relation Status Comments Father Mother Social History Tobacco Use Types Packs/Day Years Used Date Smoking Tobacco: Never Smokeless Tobacco: Never Alcohol Use Standard Drinks/Week Comments Never 0 (1 standard drink = 0.6 oz pur e alcohol) Education Answer Date Recorded Are you interested in more education? Not on concepción e 10/26/2022 Are you concerned about learning? Not on file 10/26/2022 No 10/26/2022 No 10/26/2022 Digital Access Answer Date Recorded No 11/24/2022 No 11/24/2022 Reliable internet access at home? Not on file 11/24/2022 Device with a working camera? Not on file Comments No Sex and Gender Information Value Date Recorded Sex Assigned at Not on file Legal Sex Female 10:32 PM EDT Gender Identity Not on file Sexual Orientation Not on file Last Filed Vital Signs Vital Sign Reading Time Taken Comments Blood Pressure 124/68 09/21/2021 10:14 AM EDT Pulse 74 09/21/2021 10:14 AM EDT Temperature 36.8 C (98.2 F) 09/11/2021 12:30 PM EDT Respiratory Rate 16 09/21/2021 10:14 AM EDT Oxygen Saturation 98% 09/21/2021 10:14 AM EDT Inhaled Oxygen Concentration - - Weight 61 kg (134 lb 6.4 oz) 09/21/2021 10:14 AM EDT Height 167.6 cm (5' 5.98 ) 09/21/2021 10:14 AM E DT Body Mass Index 21.7 09/21/2021 10:14 AM EDT Plan of Treatment Health Maintenance Due Date Last Done Comments Adult Td,Tdap Booster 1968 LIPID PANEL 1968 DEPRESSION SCREENING 1980 HEPATITIS C SCREENING 1986 HIV ONE-TIME SCREENING (18-6 5 YEARS) 1986 PAP SMEAR 1989 MAMMOGRAM 2008 COLOGUARD 2013 COLONOSCOPY 2013 COLORECTAL CANCER SCREENING 2013 FIT TEST 2013 FOBT 2013 SIGMOIDOSCOPY 2013 VIRTUAL COLONOSCOPY 2013 PNEUMOCOCCAL VACCINES (50+ y ears) (1 of 1 - PCV) 2018 ZOSTER VACCINES (1 of 2) 2018 INFLUENZA VACCINE (#1) 2025 COVID-19 VACCINE (1 - 2023-2 5 season) 2025 SMOKING STATUS SCREENING (On ce After 26 Yrs) Completed 09/11/2021 HEPATITIS A VACCINES Aged Out No long er eligible based on patient's age to complete this topic HIB VACCINES Aged Out No longer eligi ble based on patient's age to complete this topic MENINGOCOCCAL VACCINES (ACWY) Aged Out No longer eligible based on patient's age to complete this topic MENINGOCOCCAL VACCINES (B) Aged Out N o longer eligible based on patient's age to complete this topic Medical Devices Not on file Insurance [employer] [facility] DIRECT DIRECT DIRECT [place] [address] [place] [address] DIRECT [place] [place] [phone] Advance Directives For more information, please contact: [phone] (9AM - 5PM Rachel/[facility], Saturday-Saturday) * Full Code (Latest Code Status on File) Date Activated Date Inactivated Comments 09/11/2021 7:25 AM Question Answer Comments Code Status Confirmed With: Patient Care Teams Pinsetter Mechanic Helper Relationship Specialty Start Date End Date Zoraida Ortiz MD [facility] [place] [address] PCP - General Internal Medicine 06/02/21 Additional Source Comments The information contained in this document represents components of the legal health record. It is not the complete legal health record.[facility]
--- OUTSIDE RECORDS SUMMARY | 2025-03-03 17:50 | XMS_ITS | Encounter Summary ---
Author Organization [facility] Address [address] [place] [address] Phone Care Team Providers Care Canvas Goods Maker Name Role Phone Zoraida Ortiz MD Primary Care Provider [phone] Encounter Details Date Type Department Care Team (Late st Contact Info) Description 09/11/2021 Procedure Pass OR Admitting Dept - Virtual Department [address] [place] [address] Social History Tobacco Use Types Packs/Day Years Used Date Smoking Tobacco: Never Smokeless Tobacco: Never Alcohol Use Standard Drinks/Week Comments Never 0 (1 standard drink = 0.6 oz pur e alcohol) Comments No Sex and Gender Information Value Date Recorded Sex Assigned at Not on file Legal Sex Female 10:32 PM EDT Gender Identity Not on file Sexual Orientation Not on file documented as of this encounter Plan of Treatment Not on file documented as of this encounter Visit Diagnoses Not on filedocumented in this encounter Care Teams Canvas Goods Maker Relationship Specialty Start Date End Date Zoraida Ortiz MD [facility] [place] [address] PCP - General Internal Medicine 06/02/21 documented as of this encounter Additional Source Comments The information contained in this document represents components of the legal health record. It is not the complete legal health record.[facility]
--- OUTSIDE RECORDS SUMMARY | 2025-03-03 17:50 | XMS_ITS | Clinical Summary ---
Author Organization [facility] Address [address] [place] [address] Care Team Providers Care Armoured [employer] Officer Name Role Phone No, Pcp Primary Care Provider Unavailabl e Allergies No known active allergies Social History Tobacco Use Types Packs/Day Years Used Date Smoking Tobacco: Never Smokeless Tobacco: Never Comments Unknown Sex and Gender Information Value Date Recorded Sex Assigned at Not on file Legal Sex Female 8:19 AM EDT Gender Identity Not on file Sexual Orientation Not on file Last Filed Vital Signs Vital Sign Reading Time Taken Comments Blood Pressure 136/94 12/21/2020 8:32 AM EDT Pulse 98 12/21/2020 8:32 AM EDT Temperature 37.1 C (98.7 F) 12/21/2020 8:32 AM EDT Respiratory Rate 16 12/21/2020 8:32 AM EDT Oxygen Saturation 98% 12/21/2020 8:32 AM EDT Inhaled Oxygen Concentration - - Weight - - Height - - Body Mass Index - - Plan of Treatment Not on file Insurance [facility] Address: [address] [address] Care Teams Armoured Corps Officer Relationship Specialty Start Date End Date Rain Lim MD No Address [place] [address] PCP - General 12/21/20
== END 2025-03-03 16:56 | disposition home or self-care (01) ==
PROVIDERS: PCP Internal Medicine; Visit Provider Physician Assistant Medical
DX: J02.9 Acute pharyngitis, unspecified (principal); R05.1 Acute cough; Z13.9 Encounter for screening, unspecified